=== PATIENT | male | born 1975 | race Caucasian/White ===

== ENCOUNTER 2024-04-08 15:06 | Outpatient (CLI) | payer MEDICAID | END 2024-04-08 23:59 | disposition home or self-care (01) | LOC: MRI 15:06 | PROVIDERS: ATTEND Anesthesiology | DX: M51.17 Intervertebral disc disorders with radiculopathy, lumbosacral region (principal); M48.07 Spinal stenosis, lumbosacral region; M25.78 Osteophyte, vertebrae; M54.50 Low back pain, unspecified | CPT/HCPCS: 72148 ==